=== PATIENT | male | born 1955 | race Caucasian/White ===

== ENCOUNTER → 2018-04-04 01:01 | Outpatient (CLI) | payer BC, SELFPAY ==
--- NOTE | 2018-04-04 11:40 | DI.REPORT_ITS ---
SYMPTOM/DIAGNOSIS: LOW BACK PAIN, M54.5 LUMBOSACRAL SPINE MRI: 04/04 MRI examination of the lumbosacral spine was performed according to the usual protocol. Note is made of a mild anterior compression fracture at L1 which appears old. There are prominent hypertrophic degenerative changes most marked at L4-5 and l5 -S1. There is possible bilateral L5 spondylolysis without spondylolisthesis. Minimal anterior pseudo spondylolisthesis of L4 on L5 noted. There may be mild right sided neural foraminal narrowing at L4-5 and mild left sided neural foraminal narrowing at L5-S1. The conus medullaris appears intact. No significant disc or central canal findings to the L2-3 level. At L3-4 there is marked bilateral facet hypertrophy with resultant mild central canal spinal stenosis. At L4-5 there is severe hypertrophic degenerative change of the articular facets with resultant severe central canal spinal stenosis. At L5-S1 there is prominent hypertrophic change of the facet joints without significant abnormality of the central spinal canal. Mild disc bulge noted at L5-S1. CONCLUSION: 1. Severe central canal spinal stenosis at L4-5 2. Mild central canal spinal stenosis at L3-4 The findings are secondary to severe facet hypertrophic degenerative changes.
== END ==
PROVIDERS: PCP Nurse Practitioner Family; Visit Provider Nurse Practitioner Family
DX: M54.5 Low back pain (principal); M48.061 Spinal stenosis, lumbar region without neurogenic claudication; M47.816 Spondylosis without myelopathy or radiculopathy, lumbar region
CPT/HCPCS: 72148

== ENCOUNTER 2018-10-12 08:54 | Outpatient (CLI) | payer BC, SELFPAY ==
[2018-10-12 11:11] LABS: ALT 48 U/L (12-78); AST 42 U/L (15-37); Alkaline Phosphatase 67 U/L (46-116); Anion Gap 5.6 mmol/L (3-11); BUN 20 mg/dL (7-18); Bilirubin, Total 0.7 mg/dL (0.2-1.0); CO2 32.4 mmol/L (21.0-32.0); CREATININE 0.98 mg/dL (0.70-1.30); Chloride 100 mmol/L (98-107); Glucose 108 mg/dL (70-100); Magnesium 1.8 mg/dL (1.8-2.4); Potassium 5.2 mmol/L (3.5-5.1); Sodium 138 mmol/L (136-145); Total Protein 7.3 g/dL (6.4-8.2); Vitamin B12 649 pg/mL (193-986)
[2018-10-12 11:17] LABS: Calcium 10.1 mg/dL (8.5-10.1)
== END 2018-10-12 09:14 ==
PROVIDERS: PCP Nurse Practitioner Family; Visit Provider Nurse Practitioner Family
DX: Z00.00 Encounter for general adult medical examination without abnormal findings (principal); I10 Essential (primary) hypertension; E87.1 Hypo-osmolality and hyponatremia; F32.9 Major depressive disorder, single episode, unspecified
CPT/HCPCS: 36415; 80053; 82607; 83735

== ENCOUNTER 2018-10-23 10:55 | Outpatient (REF) | payer BC, SELFPAY ==
[2018-10-23 22:01] LABS: Anion Gap 9.1 mmol/L (3-11); BUN 16 mg/dL (7-18); CO2 30.9 mmol/L (21.0-32.0); CREATININE 0.82 mg/dL (0.70-1.30); Calcium 10.3 mg/dL (8.5-10.1); Chloride 98 mmol/L (98-107); Glucose 91 mg/dL (70-100); Potassium 4.2 mmol/L (3.5-5.1); Sodium 138 mmol/L (136-145)
== END 2018-10-23 11:15 ==
LOC: NCHCN 10:55
PROVIDERS: PCP Nurse Practitioner Family; Visit Provider Nurse Practitioner Family
DX: R31.9 Hematuria, unspecified (principal); R51 Headache; F32.9 Major depressive disorder, single episode, unspecified; Z00.00 Encounter for general adult medical examination without abnormal findings; M54.5 Low back pain; G47.33 Obstructive sleep apnea (adult) (pediatric); R39.9 Unspecified symptoms and signs involving the genitourinary system; E66.9 Obesity, unspecified
CPT/HCPCS: 80048

== ENCOUNTER 2018-11-20 11:43 | Outpatient (REF) | payer BC, SELFPAY ==
[2018-11-20 20:47] LABS: Albumin 3.9 g/dL (3.4-5.0); Calcium 9.9 mg/dL (8.5-10.1)
== END 2018-11-20 12:03 ==
LOC: NCHCN 11:43
PROVIDERS: PCP Nurse Practitioner Family; Visit Provider Nurse Practitioner Family
DX: F32.9 Major depressive disorder, single episode, unspecified (principal); E83.52 Hypercalcemia
CPT/HCPCS: 82040; 82310

== ENCOUNTER 2019-05-26 09:52 | Emergency (ER) | payer BC, SELFPAY ==
[2019-05-26 09:57] VITALS: BP 187/93; PULSE 67; RESP 18; TEMP 37.4; O2SAT 92
--- NOTE | 2019-05-26 10:01 | ED.GENADUL_ITS ---
Discharge Plan Disposition Patient Disposition: HOME Condition: Stable Discharge Details Chief Complaint: Orthopedic Clinical Impression: Left ankle sprain, Achilles tendonitis Primary Care Provider: Mame Mancia ED Provider: Lula De Los Santos Home Meds and New Rx's Prescriptions: Continued fluoxetine 40 mg Capsule 40 mg PO DAILY RF: 0 metoprolol succinate 100 mg Tablet Extended Release 24 Hr 100 mg PO DAILY RF: 0 chlorthalidone 25 mg Tablet 25 mg PO DAILY RF: 0 aspirin [Aspir-81] 81 mg Tablet,Delayed Release (Dr/Ec) 81 mg PO DAILY RF: 0 tamsulosin 0.4 mg Capsule 0.4 mg PO DAILY RF: 0 simvastatin 20 mg Tablet 20 mg PO HS RF: 0 lisinopril 40 mg Tablet 40 mg PO DAILY RF: 0 omeprazole 20 mg Tablet,Delayed Release (Dr/Ec) 20 mg PO DAILY RF: 0 fluticasone propionate [Flonase Allergy Relief] 50 mcg/actuation [place],Suspension 1 spray INTRANASAL DAILY RF: 0 multivitamin [Multiple Vitamins] Tablet 1 tab PO DAILY RF: 0 Discharge Instructions Instructions: Ankle Sprain (ED), Tendinitis (ED) Additional Instructions: Rest, ice, elevate left ankle is much as possible. Alternate Tylenol and Motrin as needed and directed for pain. Follow-up with your primary care doctor next week for reevaluation and for referral to orthopedics if symptoms do not improve or worsen. Return to the emergency department if you develop any worsening or new concerning symptoms. Referrals: Wojciech Maurer MD [ [facility] STAFF PHYSICIAN] - Discharge Data Discharge Physician: Lula De Los Santos Medical Decision Making 64-year-old male with left posterior ankle pain since yesterday. Admits to a twisting injury 1 week ago but denies any pain at that time. He has tenderness overlying Achilles tendon and just medial with some minimal edema to left anterior lateral malleolus but no tenderness palpation of malleoli, fifth metatarsal. No bony deformity. Neurovascularly intact. Differential diagnosis includes Achilles tendinitis, ankle strain versus sprain. Doubt fracture. Will send for left ankle x-ray and give a dose of ibuprofen. X-ray negative. Will place patient in Jc wrap. He requested crutches. He is advised to follow-up with his primary care doctor and for referral to orthopedics if symptoms do not improve or worsen and to return here with any concerns. Medical Records Medical records reviewed: Yes I reviewed the patient's medical records. Imaging Data Radiologic Study: Radiologist's impression: XR Left Ankle Exam date and time: 05/26/2019 10:21 AM Clinical history: 64 years old, male; Left; Patient HX: Twisted one week ago, still painful posterior aspect of ankle TECHNIQUE: Imaging protocol: XR Left ankle. Views: 3 or more views. COMPARISON: No relevant prior studies available. FINDINGS: Bones/joints: There is no evidence of acute fracture.There is no evidence of malalignment or dislocation. Soft tissues: Normal. IMPRESSION: There is no evidence of acute fracture.There is no evidence of malalignment or dislocation. HPI General Mode of arrival: wheelchair . Date/Time Provider Initiated Documentation: 05/26/19 10:01 . Limitations to Documentation: no limitations . Information obtained by: patient . HPI Narrative: Patient is a 64-year-old male presents with left ankle pain since yesterday. Patient states he twisted his ankle while walking on uneven ground working outside last week but denies any pain at that time. He states he had continued to walk on it for the past week, and yesterday he was walking outside on his uneven ground but he denies any known injury. He states the pain is in his posterior ankle. He states the pain is worse with weightbearing or movement. He has not taken anything for pain. Related Data Home Medications Medication Instructions Recorded Confirmed aspirin [Aspir-81] 81 mg PO DAILY 05/26/19 05/26/19 chlorthalidone 25 mg PO DAILY 05/26/19 05/26/19 fluoxetine 40 mg PO DAILY 05/26/19 05/26/19 fluticasone propionate [Flonase 1 spray INTRANASAL DAILY 05/26/19 05/26/19 Allergy Relief] lisinopril 40 mg PO DAILY 05/26/19 05/26/19 metoprolol succinate 100 mg PO DAILY 05/26/19 05/26/19 multivitamin [Multiple Vitamins] 1 tab PO DAILY 05/26/19 05/26/19 omeprazole 20 mg PO DAILY 05/26/19 05/26/19 simvastatin 20 mg PO HS 05/26/19 05/26/19 tamsulosin 0.4 mg PO DAILY 05/26/19 05/26/19 Allergies Allergy/AdvReac Type Severity Reaction Status Date / Time Penicillins Allergy Unverified 05/26/19 10:00 Sulfa (Sulfonamide Allergy Unverified 05/26/19 10:00 Antibiotics) General Stated Complaint: Orthopedic CLEMENT: 4 Review of Systems Review of Systems ROS Unobtainable: All systems reviewed & are unremarkable except as noted in HPI and below Constitutional Constitutional: Reports as per HPI, Denies chills and Denies fever(s) Eyes Eyes: Denies blurry vision ENT Ears, Nose, Mouth, and Throat: Denies dizziness, Denies sore throat and Denies throat swelling Cardiovascular Cardiovascular: Denies chest pain and Denies dyspnea Respiratory Respiratory: Denies cough and Denies dyspnea Gastrointestinal Gastrointestinal: Denies abdominal pain, Denies diarrhea and Denies vomiting Genitourinary Genitourinary: Denies hematuria and Denies dysuria Musculoskeletal Musculoskeletal: Denies back pain and Denies numbness Integumentary/Breasts Skin/Breast: Denies lesions and Denies rash Neurologic Neurologic: Denies dizziness, Denies focal weakness and Denies numbness Allergic/Immunologic Allergic/Immunologic: Denies throat swelling [facility] Medical History BPH (benign prostatic hyperplasia) (Chronic) HTN (hypertension) (Chronic) Hx of hyperlipidemia (Acute) Surgical History No significant past surgical history (Acute) Social History Smoking/Tobacco Use Status: Never Alcohol Intake: never Drug use: Never Substance use type: does not use Do you feel safe at home: Yes Do you feel safe in your relationship?: Yes Exam Const General: cooperative, healthy appearing and no acute distress HENMT Head: normal to inspection Mouth: oral mucosae normal Eyes General: appearance normal, both eyes and all related structures Neck Neck: normal visual inspection Resp Effort & Inspection: normal respiratory effort and able to speak in complete sentences Cardio Rate: regular rate Skin General skin exam: no rashes or lesions noted Neuro General: alert, awake and oriented x3 Motor: muscle tone normal throughout Extrem Upper/lower leg/hip images: 1. Tenderness to palpation L achilles and just medial to L achilles tendon. No erythema, edema, ecchymoses of posterior distal leg overlying achilles. Ankle/foot/toe images: 1. Mild edema anterior lateral malleolus. No ecchymosis, erythema, bony deformity or tenderness palpation of lateral or medial malleolus. Other: No left fifth metatarsal tenderness. Left DP/PT pulses intact. Psych Appearance: grossly normal Affect: normal affect Course Vital Signs Vital signs: Vital Signs Temperature 99.3 F 05/26/19 09:57 Pulse 67 05/26/19 09:57 Respiratory Rate 18 05/26/19 09:57 Blood Pressure 187/93 H 05/26/19 09:57 Pulse Oximetry 92 L 05/26/19 09:57 Temperature 99.3 F 05/26/19 09:57 Temperature Source Skin 05/26/19 09:57 Pulse 67 05/26/19 09:57 Respiratory Rate 18 05/26/19 09:57 Blood Pressure 187/93 H 05/26/19 09:57 Blood Pressure Position Sitting 05/26/19 09:57 Pulse Oximetry 92 L 05/26/19 09:57 Pain Level 92 05/26/19 09:57
--- NOTE | 2019-05-26 10:20 | DI.RAD_ITS ---
EXAM: XR ANKLE LT COMPLETE INDICATION: L posterior ankle pain, r/o acute fracture. COMPARISON: No exams were available for comparison TECHNIQUE: 2D digital imaging was performed. FINDINGS: Three views were obtained. The ankle mortise is well maintained. No fracture is seen. IMPRESSION:
[2019-05-26] MEDS: Ibuprofen 600 MG TAB PO (10:29)
--- NOTE | 2019-05-26 11:01 | DI.VRAD_ITS ---
PROCEDURE INFORMATION: Exam: XR Left Ankle Exam date and time: 05/26/2019 10:21 AM Clinical history: 64 years old, male; Left; Patient HX: Twisted one week ago, still painful posterior aspect of ankle TECHNIQUE: Imaging protocol: XR Left ankle. Views: 3 or more views. COMPARISON: No relevant prior studies available. FINDINGS: Bones/joints: There is no evidence of acute fracture.There is no evidence of malalignment or dislocation. Soft tissues: Normal. IMPRESSION: There is no evidence of acute fracture.There is no evidence of malalignment or dislocation. Dictated and Authenticated by: Mike Hutchinson MD. Ordering:DEVENDRA Cotton MD
[2019-05-26 11:30] VITALS: BP 187/93; PULSE 67; RESP 18; TEMP 37.4; O2SAT 92
== END 2019-05-26 11:27 | disposition home or self-care (01) ==
PROVIDERS: Emergency Provider Physician Assistant; PCP Nurse Practitioner Family
DX: S93.402A Sprain of unspecified ligament of left ankle, initial encounter (principal); M76.62 Achilles tendinitis, left leg; X50.1XXA Overexertion from prolonged static or awkward postures, initial encounter
CPT/HCPCS: 99283; 73610; 99282; E0114

== ENCOUNTER 2020-10-27 13:44 | Outpatient (REF) | payer BC, SELFPAY ==
[2020-10-27 21:39] LABS: Hemoglobin A1C 5.7 % (<5.7)
[2020-10-27 22:24] LABS: ALT 53 U/L (16-63); AST 48 U/L (15-37); Albumin 4.1 g/dL (3.4-5.0); Alkaline Phosphatase 67 U/L (46-116); Anion Gap 11.5 mmol/L (3-11); BUN 19 mg/dL (7-18); Bilirubin, Total 0.6 mg/dL (0.2-1.0); CO2 27.5 mmol/L (21.0-32.0); Calcium 10.1 mg/dL (8.5-10.1); Chloride 95 mmol/L (98-107); Glucose 99 mg/dL (74-106); Magnesium 1.7 mg/dL (1.8-2.4); Potassium 3.6 mmol/L (3.5-5.1); Sodium 134 mmol/L (136-145); Total Protein 7.4 g/dL (6.4-8.2); Vitamin B12 519 pg/mL (193-986)
[2020-10-29 10:54] LABS: Hepatitis A Antibody IgM Negative (Negative); Hepatitis B Core Antibody Negative (Negative); Hepatitis B surface Ag Negative (Negative); Hepatitis C Ab w Rflx HCV PCR Negative (Negative)
== END 2020-10-27 13:45 | disposition home or self-care (01) ==
LOC: NCHCN 13:44
PROVIDERS: PCP Nurse Practitioner Family; Visit Provider Nurse Practitioner Family
DX: Z00.00 Encounter for general adult medical examination without abnormal findings (principal); E78.5 Hyperlipidemia, unspecified; R51.9 Headache, unspecified; Z11.59 Encounter for screening for other viral diseases; R39.9 Unspecified symptoms and signs involving the genitourinary system; I10 Essential (primary) hypertension; R79.89 Other specified abnormal findings of blood chemistry; Z12.5 Encounter for screening for malignant neoplasm of prostate; Z13.1 Encounter for screening for diabetes mellitus; M54.5 Low back pain
CPT/HCPCS: 80053; 84153; 86704; 86709; 86803; 87340; 82607; 83036; 83735

== ENCOUNTER 2021-02-25 12:31 | Outpatient (REF) | payer BC, SELFPAY ==
[2021-02-25 21:32] LABS: ALT 45 U/L (16-63); AST 41 U/L (15-37); Alkaline Phosphatase 56 U/L (46-116); Anion Gap 9.6 mmol/L (3-11); BUN 15 mg/dL (7-18); Bilirubin, Total 0.7 mg/dL (0.2-1.0); CO2 27.4 mmol/L (21.0-32.0); Calcium 10.1 mg/dL (8.5-10.1); Chloride 99 mmol/L (98-107); Glucose 97 mg/dL (74-106); Magnesium 1.7 mg/dL (1.8-2.4); Potassium 3.5 mmol/L (3.5-5.1); Sodium 136 mmol/L (136-145); Total Protein 7.1 g/dL (6.4-8.2)
== END 2021-02-25 12:32 | disposition home or self-care (01) ==
LOC: NCHCN 12:31
PROVIDERS: PCP Nurse Practitioner Family; Visit Provider Nurse Practitioner Family
DX: E87.1 Hypo-osmolality and hyponatremia (principal); E83.42 Hypomagnesemia; M79.602 Pain in left arm; R06.09 Other forms of dyspnea; E83.52 Hypercalcemia; M54.5 Low back pain; G47.33 Obstructive sleep apnea (adult) (pediatric); R73.03 Prediabetes
CPT/HCPCS: 80053; 83735

== ENCOUNTER 2021-04-27 19:12 | Outpatient (REF) | payer BC, SELFPAY ==
[2021-04-27 22:11] LABS: C-Reactive Protein 2.36 mg/dL (0.0-0.3)
== END 2021-04-27 19:13 | disposition home or self-care (01) ==
LOC: LBN 19:12
PROVIDERS: PCP Nurse Practitioner Family; Visit Provider Nurse Practitioner Family
DX: L03.90 Cellulitis, unspecified (principal)
CPT/HCPCS: 85025; 86140

== ENCOUNTER 2021-04-28 10:22 | Outpatient (CLI) | payer BC, SELFPAY ==
--- NOTE | 2021-04-27 13:30 | DI.RAD_ITS ---
Exam(s) XR TIB/FIB LT EXAM: XR TIB/FIB LT CLINICAL HISTORY: trauma, T14.90XA. TECHNIQUE: 2D digital imaging was performed COMPARISON: CR,XR XR ANKLE LT COMPLETE from 05/26/2019 CR,XR XR ANKLE LT COMPLETE from 05/26/2019 FINDINGS: BONES: No acute fracture is present. No bony destructive lesion is seen. Visualized portion of knee a nd ankle joints are unremarkable. SOFT TISSUE: Diffuse lower extremity edema greater around the ankle. IMPRESSION: Soft tissue swelling. No evidence of fracture. DATA REPOSITORY: RADIATION DOSE DELIVERED:
== END 2021-04-28 10:42 ==
PROVIDERS: PCP Nurse Practitioner Family; Visit Provider Nurse Practitioner Family
DX: T14.90XA Injury, unspecified, initial encounter (principal); M25.472 Effusion, left ankle
CPT/HCPCS: 73590

== ENCOUNTER 2021-04-29 14:18 | Outpatient (REF) | payer BC, SELFPAY ==
[2021-04-29 13:22] LABS: Abs Immature Grans 0.08 10^3/uL (0.0-0.06); Absolute Basophil Count 0.07 10^3/uL (0.0-0.2); Absolute Lymphocyte Count 2.29 10^3/uL (1.2-3.4); Absolute Monocyte Count 0.96 10^3/uL (0.1-0.8); Absolute Neutrophil Count 9.38 10^3/uL (1.2-6.7); Basophils % 0.5; Immature Grans % 0.6; Lymphocytes % 17.4; MCH 30.2 pg (27.0-33.0); MCHC 33.3 % (32.0-36.0); MCV 90.5 fL (80-95); MPV 9.9 fL (8.0-11.0); Monocytes % 7.3; Neutrophils % 71.2; Nucleated RBC 0 %; Platelet Count 277 10^3/uL (130-400); RBC 4.31 10^6/uL (4.36-5.78); RDW 12.3 % (11.8-14.1); RDW-SD 41.1 fL; WBC 13.17 10^3/uL (4.4-10.8)
== END 2021-04-29 14:19 | disposition home or self-care (01) ==
LOC: LBN 14:18
PROVIDERS: PCP Nurse Practitioner Family; Referring Provider Nurse Practitioner Family; Visit Provider Nurse Practitioner Family
DX: T14.90XA Injury, unspecified, initial encounter (principal)
CPT/HCPCS: 85025

== ENCOUNTER 2021-11-18 18:28 | Outpatient (REF) | payer BC, SELFPAY | END 2021-11-18 18:29 | disposition home or self-care (01) | LOC: NCHCN 18:28 | PROVIDERS: PCP Nurse Practitioner Family; Visit Provider Nurse Practitioner Family ==

== ENCOUNTER 2021-11-30 02:19 | Outpatient (CLI) | payer BC, SELFPAY | END 2021-11-30 02:20 | disposition home or self-care (01) | LOC: LBO 02:19 | PROVIDERS: PCP Nurse Practitioner Family; Visit Provider Nurse Practitioner Family ==

== ENCOUNTER 2021-12-09 02:55 | Outpatient (CLI) | payer BC, SELFPAY ==
[2021-12-09 12:33] LABS: Abs Immature Grans 0.05 10^3/uL (0.0-0.06); Absolute Basophil Count 0.04 10^3/uL (0.0-0.2); Absolute Eosinophil Count 0.27 10^3/uL (0.0-0.7); Absolute Lymphocyte Count 1.91 10^3/uL (1.2-3.4); Absolute Monocyte Count 0.81 10^3/uL (0.1-0.8); Basophils % 0.3; Eosinophils % 2.3; HCT 44.4 % (40.0-50.0); HGB 14.9 g/dL (13.5-17.5); Immature Grans % 0.4; MCH 29.9 pg (27.0-33.0); MCHC 33.6 % (32.0-36.0); MCV 89 fL (80-95); MPV 9.5 fL (8.0-11.0); Monocytes % 6.8; Neutrophils % 74.2; Platelet Count 281 10^3/uL (130-400); RBC 4.98 10^6/uL (4.36-5.78); RDW 12.3 % (11.8-14.1); RDW-SD 40.6 fL; WBC 11.91 10^3/uL (4.4-10.8)
[2021-12-09 12:35] LABS: Bilirubin Negative (Negative); Blood Negative (Negative); Clarity Clear (Clear); Glucose Negative (Negative); Ketones Negative (Negative); Leukocyte Esterase Negative (Negative); Nitrite Negative (Negative)
[2021-12-09 12:39] LABS: Absolute Neutrophil Count 8.84 10^3/uL (1.2-6.7)
[2021-12-09 12:45] LABS: Iron 108 ug/dL (65-175); Total Iron Binding Capacity 357 ug/dL (250-450); Transferrin Sat 30 % (20-55)
[2021-12-09 12:51] LABS: Hemoglobin A1C 6.1 % (<5.7)
[2021-12-09 13:19] LABS: ALT 63 U/L (16-63); AST 54 U/L (15-37); Albumin 4.4 g/dL (3.4-5.0); Alkaline Phosphatase 78 U/L (46-116); Anion Gap 6.8 mmol/L (3-11); BUN 18 mg/dL (7-18); Bilirubin, Total 0.7 mg/dL (0.2-1.0); CO2 30.2 mmol/L (21.0-32.0); CREATININE 0.8 mg/dL (0.70-1.30); Calcium 10.8 mg/dL (8.5-10.1); Chloride 93 mmol/L (98-107); Ferritin 129 ng/mL (26-388); Glucose 89 mg/dL (74-106); Magnesium 1.6 mg/dL (1.8-2.4); Potassium 3.9 mmol/L (3.5-5.1); Sodium 130 mmol/L (136-145); TSH (W/Ref FT4) 1.39 uIU/mL (0.36-3.74); Total Protein 7.9 g/dL (6.4-8.2); Vitamin B12 790 pg/mL (193-986)
[2021-12-09 21:47] LABS: PSA, Screening 1.4 ng/mL (<=4.5)
== END 2021-12-09 02:56 | disposition home or self-care (01) ==
PROVIDERS: PCP Nurse Practitioner Family; Visit Provider Nurse Practitioner Family
DX: D64.9 Anemia, unspecified (principal); E83.42 Hypomagnesemia; I10 Essential (primary) hypertension; E78.5 Hyperlipidemia, unspecified; R31.9 Hematuria, unspecified; E88.81 Metabolic syndrome and other insulin resistance; R60.0 Localized edema; F03.90 Unspecified dementia, unspecified severity, without behavioral disturbance, psychotic disturbance, mood disturbance, and anxiety; Z12.5 Encounter for screening for malignant neoplasm of prostate
CPT/HCPCS: 36415; 80053; 84153; 81003; 82607; 82728; 83036; 83540; 83550; 83735; 84443; 85025

== ENCOUNTER 2021-12-10 13:06 | Outpatient (REF) | payer BC, SELFPAY | END 2021-12-10 13:07 | disposition home or self-care (01) | LOC: NCHCN 13:06 | PROVIDERS: PCP Nurse Practitioner Family; Visit Provider Nurse Practitioner Family ==

== ENCOUNTER 2022-01-20 02:13 | Outpatient (CLI) | payer BC, SELFPAY ==
[2022-01-20 08:35] LABS: Anion Gap 8.3 mmol/L (3-11); BUN 16 mg/dL (7-18); CO2 29.7 mmol/L (21.0-32.0); Calcium 10.1 mg/dL (8.5-10.1); Chloride 94 mmol/L (98-107); Glucose 113 mg/dL (74-106); Potassium 3.6 mmol/L (3.5-5.1); Sodium 132 mmol/L (136-145)
[2022-01-20 17:34] LABS: Ionized Calcium 1.26 mmol/L (1.14-1.35)
[2022-01-21 09:37] LABS: Parathyroid Hormone,Intact 76 pg/mL (19-88)
== END 2022-01-20 02:14 | disposition home or self-care (01) ==
LOC: LBO 02:13
PROVIDERS: PCP Nurse Practitioner Family; Visit Provider Nurse Practitioner Family
DX: E87.1 Hypo-osmolality and hyponatremia (principal); R79.89 Other specified abnormal findings of blood chemistry; E83.52 Hypercalcemia
CPT/HCPCS: 36415; 80048; 82330; 83970

== ENCOUNTER → 2022-03-24 00:58 | Outpatient (CLI) | payer BC, SELFPAY ==
--- NOTE | 2022-03-24 | DI.MRI_ITS ---
Exam(s) MR ABDOMEN WO/W EXAM: MR ABDOMEN WO/W CLINICAL HISTORY: ELEVATED LIVER ENZYMES,R74.8.DILATED CBD,CYSTIC LESIONS IN SPLEEN TECHNIQUE: Multiplanar multisequence MRI was performed with both pre and post contrast infused seque nces. Contrast injected sequences were performed following IV injection of 20 cc of Dotarem. Dynamic post injected sequences were performed out to 15 minutes. COMPARISON: US US ABDOMEN from 01/20/2022 FINDINGS: VISUALIZED LUNG BASES: No pleural effusions evident. There is no ascites evident. LIVER: Liver size upper normal. Hepatic steatosis evident. No focal hepatic lesions identified. BILIARY/MRCP: There is no obvious gallbladder pathology. The CBD is not dilated.No obvious dilatatio n of intrahepatic ducts. PANCREAS: There is no evidence of pancreatic mass nor dilatation of the pancreatic duct. SPLEEN: Spleen size is normal. There is a 3.7 by 3.9 by 3.7 cm well-defined lobulated cystic appeari ng mass with internal septations in the posterior aspect of the spleen. Following contrast injection this exhibits mild enhancement of the internal septations but does not fill in contrast. ADRENALS: There are no significant adrenal masses. KIDNEYS: There are benign cysts evident in both kidneys. Largest of these is in the left kidney and measures 4 cm. No solid renal masses. No hydronephrosis. ABDOMINAL AORTA: Not enlarged and there is no significant para-aortic adenopathy. ANTERIOR ABDOMINAL WALL/GI: There is no evidence of significant anterior abdominal wall hernia in the field of view of this study.Is no evidence of obvious bowel obstruction. OSSEOUS: There are no lytic osseous lesions in the field of view of this study. IMPRESSION: 1. There is a 3.7 x 3.9 x 3.7 cm lesion as described above in the posterior aspect of the spleen whic h is most probably a benign lesion such as an atypical septated cyst, atypical hemangioma, or lympha ngioma. Recommend follow-up ultrasound on periodic basis to ensure stability. 2. Hepatic steatosis evident. No focal hepatic lesion seen. 3. Benign appearing cysts both kidneys measuring up to 4 cm. No solid renal masses. No hydronephrosis . Other findings as above. DATA REPOSITORY:
[2022-03-24] MEDS: Gadoterate meglumine 20 ML SYRINGE IVP (09:04)
--- NOTE | 2022-03-24 19:12 | DI.VRAD_ITS ---
PROCEDURE INFORMATION: Exam: MR Abdomen Without and With Contrast Exam date and time: 03/24/2022 8:23 AM Age: 66 years old Clinical indication: Other: Elevated liver enzymes, r74.8. Dilated cbd, cystic lesions in spleen TECHNIQUE: Imaging protocol: Magnetic resonance imaging of the abdomen without and with contrast. COMPARISON: US ABDOMEN 01/20/2022 7:18 AM FINDINGS: Liver: Mildly enlarged liver. No focal liver lesions. Signal characteristics of liver suggesting some fatty change. Liver length is 24 cm period transverse width is 22 cm. AP length 22 cm. Gallbladder and bile ducts: Gallbladder is unremarkable. No gallstones. No ductal dilatation. Common bile duct with maximal diameter of 5 mm. No choledocholithiasis evident. Pancreas: Pancreas is unremarkable in contour and signal characteristics. No ductal dilatation. Spleen: Spleen is normal in size and contour. There is a posterior splenic lesion measuring 3.4 x 3.6 cm. Stable in size since earlier ultrasound from 01/20/2022. This shows increased signal on T2 and decreased signal on T1. This has some internal septations suggested on T2. This is most consistent with a nonaggressive and benign splenic lesion. Differential diagnosis would include a process such as a splenic lymphanioma or atypical hemangioma. Less likely an atypical splenic cyst. Minor internal septation enhancement post contrast. Adrenal glands: Adrenal glands are normal in contour and signal characteristics. Kidneys and ureters: Bilateral kidneys with multiple benign cysts. Largest right-sided cyst 3.7 cm. Largest left-sided cyst 4.2 cm. No further imaging follow-up is recommended. Stomach and bowel: Stomach, small bowel, and large bowel are unremarkable as visualized. Intraperitoneal space: No free fluid. Vasculature: Abdominal aorta is normal. Inferior vena cava is unremarkable. Bones/joints: Unremarkable as visualized Soft tissues: Unremarkable. IMPRESSION: 1. Mild hepatic enlargement and fatty liver infiltration. 2. No acute biliary tract disease. No biliary ductal dilatation. 3. 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 Follow-up with ultrasound on a periodic basis is suggested. 4. Benign-appearing renal cysts bilaterally. No further imaging follow-up recommended. Dictated and Authenticated by: Floyd Michaud MD. Ordering:BONY Jensen MD
== END ==
PROVIDERS: PCP Nurse Practitioner Family; Visit Provider Internal Medicine
DX: K76.0 Fatty (change of) liver, not elsewhere classified (principal); R16.0 Hepatomegaly, not elsewhere classified
CPT/HCPCS: 74183

== ENCOUNTER 2022-06-09 15:44 | Outpatient (REF) | payer MEDICARE, BC, SELFPAY ==
[2022-06-09 15:10] LABS: Anion Gap 5.3 mmol/L (3-11); BUN 21 mg/dL (7-18); CO2 28.7 mmol/L (21.0-32.0); CREATININE 0.9 mg/dL (0.70-1.30); Calcium 10.2 mg/dL (8.5-10.1); Chloride 103 mmol/L (98-107); Estimated GFR 94.78 (mL/min/1.73m2); Glucose 88 mg/dL (74-106); Sodium 137 mmol/L (136-145)
== END 2022-06-09 15:45 | disposition home or self-care (01) ==
LOC: NCHCN 15:44
PROVIDERS: PCP Nurse Practitioner Family; Visit Provider Nurse Practitioner Family
DX: R79.89 Other specified abnormal findings of blood chemistry (principal); E87.1 Hypo-osmolality and hyponatremia; K76.0 Fatty (change of) liver, not elsewhere classified; R60.0 Localized edema; R51.9 Headache, unspecified; R41.82 Altered mental status, unspecified
CPT/HCPCS: 80048; 83735

== ENCOUNTER 2022-12-06 16:06 | Outpatient (REF) | payer MEDICARE, BC, SELFPAY ==
[2022-12-06 20:49] LABS: Abs Immature Grans 0.05 10^3/uL (0.0-0.06); Absolute Basophil Count 0.06 10^3/uL (0.0-0.2); Absolute Eosinophil Count 0.33 10^3/uL (0.0-0.7); Absolute Lymphocyte Count 2.37 10^3/uL (1.2-3.4); Absolute Monocyte Count 0.65 10^3/uL (0.1-0.8); Absolute Neutrophil Count 7.69 10^3/uL (1.2-6.7); Basophils % 0.5; HCT 45.3 % (40.0-50.0); HGB 15.2 g/dL (13.5-17.5); Immature Grans % 0.4; Lymphocytes % 21.3; MCH 30.2 pg (27.0-33.0); MCHC 33.6 % (32.0-36.0); MCV 90 fL (80-95); Monocytes % 5.8; Platelet Count 258 10^3/uL (130-400); RBC 5.04 10^6/uL (4.36-5.78); RDW-SD 42.5 fL; WBC 11.15 10^3/uL (4.4-10.8)
[2022-12-06 21:24] LABS: Hemoglobin A1C 5.7 % (<5.7)
[2022-12-06 21:31] LABS: ALT 50 U/L (16-63); AST 32 U/L (15-37); Albumin 4.2 g/dL (3.4-5.0); Alkaline Phosphatase 93 U/L (46-116); Anion Gap 6.9 mmol/L (3-11); BUN 13 mg/dL (7-18); Bilirubin, Total 0.6 mg/dL (0.2-1.0); CO2 32.1 mmol/L (21.0-32.0); CREATININE 0.9 mg/dL (0.70-1.30); Calcium 9.8 mg/dL (8.5-10.1); Chloride 99 mmol/L (98-107); Estimated GFR 94.78 (mL/min/1.73m2); Glucose 81 mg/dL (74-106); Magnesium 2.1 mg/dL (1.8-2.4); Potassium 4.2 mmol/L (3.5-5.1); Sodium 138 mmol/L (136-145); Total Protein 7.7 g/dL (6.4-8.2); Vitamin B12 932 pg/mL (193-986)
== END 2022-12-06 16:07 | disposition home or self-care (01) ==
LOC: NCHCN 16:06
PROVIDERS: PCP Nurse Practitioner Family; Visit Provider Nurse Practitioner Family
DX: Z00.00 Encounter for general adult medical examination without abnormal findings (principal); I10 Essential (primary) hypertension; E83.52 Hypercalcemia; D64.9 Anemia, unspecified; F03.90 Unspecified dementia, unspecified severity, without behavioral disturbance, psychotic disturbance, mood disturbance, and anxiety; R60.0 Localized edema; K76.0 Fatty (change of) liver, not elsewhere classified; F43.23 Adjustment disorder with mixed anxiety and depressed mood; R79.89 Other specified abnormal findings of blood chemistry
CPT/HCPCS: 80053; 82607; 83036; 83735; 85025